=== PATIENT | male | born 1955 | race Asian ===

== ENCOUNTER 2023-01-26 08:29 | Emergency (ER) | payer OTHER, BC ==
[2023-01-26 08:38] VITALS: RESP 18; TEMP 97.6; BMI 24.3
[2023-01-26] MEDS ORDERED: BACITRACIN ZINC 15 GM TUBE TOPICAL OINTMENT ONE (10:33)
[2023-01-26] MEDS ORDERED: DIPHTH,PERTUSS(ACELL),TET 0.5 ML DISP.SYRIN IM ONE ×2 (10:37→10:50)
[2023-01-26 10:58] VITALS: BP 209/99; PULSE 87
[2023-01-27] MEDS ORDERED: BACITRACIN ZINC 15 GM TUBE TOPICAL OINTMENT TP ONE (10:25)
== END 2023-01-26 12:11 | disposition home or self-care (01) ==
LOC: JER 08:29
PROC: 3E0234Z Introduction of Serum, Toxoid and Vaccine into Muscle, Percutaneous Approach (ICD-10-PCS; principal; 2023-01-26)
DX: S90.852A Superficial foreign body, left foot, initial encounter (principal); W45.8XXA Other foreign body or object entering through skin, initial encounter
CPT/HCPCS: 90471; 90715; 93005; 93010; 99284-25

== ENCOUNTER 2023-02-08 14:41 | Inpatient (IN) | payer OTHER, BC ==
[2023-02-08 14:53] VITALS: BMI 24.3
[2023-02-08] MEDS ORDERED: PIPERACILLIN/TAZOB 4.5 GM 4.5 GM in DEXTROSE 5%-WATER 100 ML IVPB ONE (15:50)
[2023-02-08] MEDS ORDERED: VANCOMYCIN 1,000 MG in DEXTROSE 5%-WATER - 250 ML IVPB ONE (15:50)
[2023-02-08 17:06] LABS: BASO % 0.5 % (0-2.0); EOS % 1.6 % (0-4.5); HEMATOCRIT 44.8 % (35.4-49); HEMOGLOBIN 15.4 GM/dL (11.7-16.9); LYMPH % 25.8 % (8-40); MCH 29.7 pg (25.7-33.7); MCHC 34.4 g/dl (32.0-35.9); MEAN CELL VOLUME 86.5 fl (80-96); MEAN PLT VOLUME 7.5 fl (7.5-11.1); MONO % 6.4 % (3.8-10.2); NEUT % 65.7 % (42.8-82.8); PLATELET COUNT 309 10^3/uL (134-434); RBC 5.18 M/mm3 (4.00-5.60); RDW 12.9 % (11.9-15.9); WHITE BLOOD COUNT 7.8 K/mm3 (4.0-10.0)
[2023-02-08] MEDS ORDERED: VANCOMYCIN/WATER FOR INJ (PEG) 1,000 MG/200 ML BAG IVPB ONE (17:08)
[2023-02-08 17:14] LABS: INR 1.07 (0.83-1.09); PROTHROMBIN TIME (PATIENT) 12.4 SEC (9.7-13.0)
[2023-02-08 17:17] LABS: ACTIVATED PTT 31.5 SECONDS (25.2-36.5)
[2023-02-08 17:39] LABS: POTASSIUM 4.2 mmol/L (3.5-5.1)
[2023-02-08 17:42] LABS: CALCIUM 9.1 mg/dL (8.5-10.1)
[2023-02-08 17:43] LABS: ALBUMIN 4.8 g/dl (3.4-5.0); BLOOD UREA NITROGEN 18.2 mg/dL (7-18)
[2023-02-08 17:46] LABS: CREATININE 1.1 mg/dL (0.55-1.3)
[2023-02-08 17:48] LABS: BILIRUBIN,TOTAL 0.5 mg/dL (0.2-1)
[2023-02-08] MEDS ORDERED: PIPERACILLIN/TAZOB 4.5 GM 4.5 GM/100 ML BAG IVPB ONE (17:53)
[2023-02-08] MEDS ORDERED: hydrALAZINE HCL 20 MG/ML VIAL IVPUSH ONE (23:13)
[2023-02-08] MEDS ORDERED: hydrALAZINE HCL 20 MG/ML VIAL ONE (23:15)
[2023-02-09 09:51] LABS: HEMATOCRIT 45.3 % (35.4-49); HEMOGLOBIN 15.6 GM/dL (11.7-16.9); MCH 29.6 pg (25.7-33.7); MCHC 34.5 g/dl (32.0-35.9); MEAN CELL VOLUME 85.9 fl (80-96); MEAN PLT VOLUME 7.3 fl (7.5-11.1); PLATELET COUNT 285 10^3/uL (134-434); RBC 5.28 M/mm3 (4.00-5.60); WHITE BLOOD COUNT 7.1 K/mm3 (4.0-10.0)
[2023-02-09] MEDS ORDERED: hydrALAZINE HCL 20 MG/ML VIAL IVPUSH ONE (09:52)
[2023-02-09 10:53] LABS: POTASSIUM 3.9 mmol/L (3.5-5.1)
[2023-02-09 11:03] LABS: ALBUMIN 4.4 g/dl (3.4-5.0); PHOSPHOROUS 3.3 mg/dL (2.5-4.9)
[2023-02-09 11:04] LABS: BILIRUBIN,TOTAL 0.4 mg/dL (0.2-1); BLOOD UREA NITROGEN 13.2 mg/dL (7-18); TOT PROT 7.3 g/dl (6.4-8.2)
[2023-02-09 11:06] LABS: CALCIUM 8.9 mg/dL (8.5-10.1); MAGNESIUM 2.1 mg/dL (1.8-2.4)
[2023-02-09] MEDS: PIPERACILLIN/TAZOB 3.375 GM 3.375 GM in DEXTROSE 5%-WATER - 50 ML IVPB SCH ×2 (12:48→17:04)
[2023-02-09] MEDS ORDERED: hydrALAZINE HCL 10 MG TABLET PO SCH (14:00)
[2023-02-09] MEDS ORDERED: LORazepam 0.5 MG TABLET PO ONE (16:23)
[2023-02-09] MEDS: LABETALOL HCL 100 MG TABLET (FP) PO SCH ×2 (21:28→21:34)
[2023-02-09] MEDS ORDERED: LORazepam 1 MG TABLET PO ONE (22:48)
[2023-02-10] MEDS: PIPERACILLIN/TAZOB 3.375 GM 3.375 GM in DEXTROSE 5%-WATER - 50 ML IVPB SCH ×3 (01:33→18:18)
[2023-02-10] MEDS ORDERED: LORazepam 0.5 MG TABLET PO PRN (07:35)
[2023-02-10] MEDS: LABETALOL HCL 100 MG TABLET (FP) PO SCH (09:39)
[2023-02-10 10:29] LABS: BASO % 0.7 % (0-2.0); EOS % 4.4 % (0-4.5); HEMATOCRIT 45.9 % (35.4-49); HEMOGLOBIN 15.2 GM/dL (11.7-16.9); LYMPH % 28.9 % (8-40); MCH 29.3 pg (25.7-33.7); MCHC 33.1 g/dl (32.0-35.9); MEAN CELL VOLUME 88.3 fl (80-96); MEAN PLT VOLUME 7.8 fl (7.5-11.1); MONO % 6.3 % (3.8-10.2); NEUT % 59.7 % (42.8-82.8); PLATELET COUNT 300 10^3/uL (134-434); RBC 5.19 M/mm3 (4.00-5.60); RDW 12.7 % (11.9-15.9); WHITE BLOOD COUNT 7.1 K/mm3 (4.0-10.0)
[2023-02-10 10:51] LABS: CALCIUM 8.7 mg/dL (8.5-10.1)
[2023-02-10 10:52] LABS: BLOOD UREA NITROGEN 10.7 mg/dL (7-18); MAGNESIUM 2.3 mg/dL (1.8-2.4)
[2023-02-10 10:56] LABS: CREATININE 1.1 mg/dL (0.55-1.3); PHOSPHOROUS 3.8 mg/dL (2.5-4.9)
[2023-02-10 10:57] LABS: BILIRUBIN,TOTAL 0.7 mg/dL (0.2-1); TOT PROT 7.2 g/dl (6.4-8.2)
[2023-02-10] MEDS ORDERED: LIDOCAINE HCL 1%, 10 MG/ML (10ML VIAL) MDV ONE (12:18)
[2023-02-10] MEDS ORDERED: BUPIVACAINE HCL/PF 0.5% (5MG/ML) 10 ML VIAL ONE (12:19)
[2023-02-10] MEDS ORDERED: MIDAZOLAM HCL 2 MG/2 ML SINGLE DOSE VIAL ONE (12:29)
[2023-02-10] MEDS ORDERED: BUPIVACAINE HCL/PF 0.5% (5 MG/ML) 30 ML VIAL IJ ONE (12:31)
[2023-02-10] MEDS ORDERED: LIDOCAINE HCL 1%, 10 MG/ML (20ML VIAL) INF ONE (12:31)
[2023-02-10] MEDS ORDERED: GENTAMICIN SO4 80 MG/2 ML VIAL IVPB ONE (12:41)
[2023-02-10] MEDS ORDERED: GENTAMICIN SO4 80 MG/2 ML VIAL ONE (12:44)
[2023-02-10] MEDS ORDERED: ACETAMINOPHEN 325 MG TABLET (FP) PO ONE (15:18)
[2023-02-10] MEDS ORDERED: LABETALOL HCL 100 MG TABLET (FP) PO ONE (18:58)
[2023-02-10] MEDS: LORazepam 0.5 MG TABLET PO PRN (19:01)
[2023-02-10] MEDS ORDERED: oxyCODONE HCL 5 MG TABLET PO PRN (19:08)
[2023-02-10] MEDS ORDERED: ACETAMINOPHEN 500 MG TABLET (FP) PO PRN (19:09)
[2023-02-10] MEDS ORDERED: LABETALOL HCL 100 MG TABLET (FP) PO SCH (22:00)
[2023-02-10] MEDS: HEPARIN NA (PORCINE) 5,000 UNITS/ML 1ML VIAL SQ SCH (22:37)
[2023-02-10] MEDS: LABETALOL HCL 200 MG TABLET (FP) PO SCH (22:38)
[2023-02-11] MEDS: PIPERACILLIN/TAZOB 3.375 GM 3.375 GM in DEXTROSE 5%-WATER - 50 ML IVPB SCH ×3 (02:14→18:55)
[2023-02-11 09:00] LABS: BASO % 0.8 % (0-2.0); EOS % 5.2 % (0-4.5); HEMATOCRIT 43.6 % (35.4-49); HEMOGLOBIN 14.6 GM/dL (11.7-16.9); LYMPH % 35.3 % (8-40); MCH 29.5 pg (25.7-33.7); MCHC 33.5 g/dl (32.0-35.9); MEAN PLT VOLUME 7.9 fl (7.5-11.1); MONO % 7.1 % (3.8-10.2); NEUT % 51.6 % (42.8-82.8); PLATELET COUNT 268 10^3/uL (134-434); RBC 4.95 M/mm3 (4.00-5.60); RDW 12.7 % (11.9-15.9); WHITE BLOOD COUNT 6.3 K/mm3 (4.0-10.0)
[2023-02-11 09:13] LABS: POTASSIUM 4.4 mmol/L (3.5-5.1)
[2023-02-11 09:17] LABS: ALBUMIN 3.7 g/dl (3.4-5.0); BLOOD UREA NITROGEN 11.7 mg/dL (7-18); MAGNESIUM 2.1 mg/dL (1.8-2.4)
[2023-02-11 09:20] LABS: CREATININE 1.1 mg/dL (0.55-1.3)
[2023-02-11 09:22] LABS: BILIRUBIN,TOTAL 0.7 mg/dL (0.2-1); CALCIUM 8.7 mg/dL (8.5-10.1)
[2023-02-11] MEDS: LABETALOL HCL 200 MG TABLET (FP) PO SCH ×2 (09:31→22:00)
[2023-02-11] MEDS: HEPARIN NA (PORCINE) 5,000 UNITS/ML 1ML VIAL SQ SCH ×2 (09:31→22:00)
[2023-02-11 14:51] VITALS: RESP 18
[2023-02-11] MEDS: LORazepam 0.5 MG TABLET PO PRN (18:54)
[2023-02-12] MEDS: PIPERACILLIN/TAZOB 3.375 GM 3.375 GM in DEXTROSE 5%-WATER - 50 ML IVPB SCH ×2 (04:18→10:47)
[2023-02-12 10:35] LABS: BASO % 0.7 % (0-2.0); EOS % 4.9 % (0-4.5); HEMATOCRIT 44.7 % (35.4-49); HEMOGLOBIN 15.3 GM/dL (11.7-16.9); MCH 29.6 pg (25.7-33.7); MCHC 34.3 g/dl (32.0-35.9); MEAN CELL VOLUME 86.3 fl (80-96); MEAN PLT VOLUME 7.5 fl (7.5-11.1); MONO % 4.9 % (3.8-10.2); NEUT % 55.5 % (42.8-82.8); PLATELET COUNT 273 10^3/uL (134-434); RBC 5.18 M/mm3 (4.00-5.60); RDW 12.8 % (11.9-15.9); WHITE BLOOD COUNT 6.3 K/mm3 (4.0-10.0)
[2023-02-12] MEDS: HEPARIN NA (PORCINE) 5,000 UNITS/ML 1ML VIAL SQ SCH (10:44)
[2023-02-12] MEDS: LABETALOL HCL 200 MG TABLET (FP) PO SCH (10:44)
[2023-02-12 10:52] LABS: POTASSIUM 4.3 mmol/L (3.5-5.1)
[2023-02-12 11:05] LABS: ALBUMIN 3.8 g/dl (3.4-5.0); CALCIUM 8.9 mg/dL (8.5-10.1)
[2023-02-12 11:06] LABS: BLOOD UREA NITROGEN 13.4 mg/dL (7-18); MAGNESIUM 2.1 mg/dL (1.8-2.4)
[2023-02-12 11:08] LABS: CREATININE 1.2 mg/dL (0.55-1.3)
[2023-02-12 11:10] LABS: BILIRUBIN,TOTAL 0.6 mg/dL (0.2-1); TOT PROT 7.3 g/dl (6.4-8.2)
[2023-02-12 15:23] VITALS: BP 162/80; PULSE 80; TEMP 98.2
[2023-02-12] MEDS ORDERED: AMOX TR/POT CLAV 875MG/125MG TABLETS (FP) PO SCH (17:30)
== END 2023-02-12 16:15 | disposition home or self-care (01) | DRG 580 ==
LOC: JER 14:41 → JERBED 20:11 → J7W 02-09 03:34 → J8W 02-09 07:10
PROVIDERS: ADMIT Student in an Organized Health Care Education/Training Program; ATTEND Nurse Practitioner Family
PROC: 0JCR0ZZ Extirpation of Matter from Left Foot Subcutaneous Tissue and Fascia, Open Approach (ICD-10-PCS; principal; 2023-02-10 12:00)
DX: S91.302A Unspecified open wound, left foot, initial encounter (principal); L02.612 Cutaneous abscess of left foot; S90.852A Superficial foreign body, left foot, initial encounter; I10 Essential (primary) hypertension; X58.XXXA Exposure to other specified factors, initial encounter; Y92.89 Other specified places as the place of occurrence of the external cause; Y92.238 Other place in hospital as the place of occurrence of the external cause
CPT/HCPCS: 36415; 73630-TC-LT; 73718-TC-LT; 80053; 83735; 84100; 85025; 85027; 85610; 85651; 85730; 86140; 86850; 86900; 86901; 87070; 87205; 93005; 93010; 94760; 97116-GP; 97161-GP; 99285-25; J1644